=== PATIENT | female | born 1975 | race African-American/Black ===

== ENCOUNTER 2022-02-12 04:53 | Emergency (ER) | payer MEDICAID ==
[~2022-02-12] VITALS: Ht 177.8 cm; Wt 105.0 kg
[2022-02-12 06:32] LABS: BASOPHILS % 0.9 % (0.0-2.0); EOSINOPHILS % 1.3 % (0.0-5.0); HEMOGLOBIN. 8.2 g/dL (12.0-16.0); LYMPHOCYTES % 18.2 % (20.0-50.0); MEAN CORPUSCULAR HEMOGLOBIN 16.6 pg (28.0-32.0); MEAN PLATELET VOLUME 8.6 fl (7.4-10.4); MONOCYTES % 3.8 % (2.0-8.0); NEUTROPHILS % 75.8 % (40.0-76.0); PLATELET 494 x1000/uL (130-400)
[2022-02-12 06:33] LABS: CHLORIDE 109 mEq/L (98-107)
[2022-02-12 06:35] LABS: HCG SCREEN NEGATIVE
[2022-02-12 07:01] LABS: PLATELET ESTIMATE INCREASED
[2022-02-12 08:09] VITALS: BP 137/86
[2022-02-12] MEDS ORDERED: AMLO5TAB88 PO (08:33)
[2022-02-12] MEDS ORDERED: LOSA25TA26 PO (08:33)
== END 2022-02-12 09:11 | disposition home or self-care (01) ==
LOC: ER 05:16
DX: R55 Syncope and collapse (principal); R42 Dizziness and giddiness; I10 Essential (primary) hypertension; Z98.51 Tubal ligation status
CPT/HCPCS: 36415; 71045; 80053; 82962; 83880; 84484; 84703; 85025; 93005; 99285